=== PATIENT | female | born 1975 | race Hispanic/Latino ===

== ENCOUNTER 2025-03-30 15:00 | Inpatient (IN) | payer BC, MEDICAID ==
[2025-03-30 15:34] LABS: #Basophils 0.03 10x3/uL (0.0-0.2); #Eosinophils 0.21 10x3/uL (0.0-0.7); #Monocytes 0.79 10x3/uL (0.11-0.59); #Neutrophils 8.25 10x3/uL (1.40-6.50); %Basophils 0.3 % (0.0-1.0); %Eosinophils 1.9 % (0.0-10.0); %Lymphocytes 17.1 % (21.0-51.0); %Monocytes 7.0 % (0.0-10.0); %Neutrophils 73.4 % (42.0-75.0); Hematocrit 37.3 % (36.0-47.0); Hemoglobin 12.6 g/dL (12.0-16.0); Mean Corpuscular Hemoglobin 28.5 pg (27.0-31.0); Mean Corpuscular Volume 84.4 fL (78.0-98.0); Platelet Count 246 10x3/uL (130-400); Red Blood Cell (RBC) Count 4.42 mill/uL (4.20-5.40); White Blood Cell (WBC) Count 11.23 10x3/uL (4.8-10.8)
[2025-03-30] MEDS ORDERED: diphenhydrAMINE 50 MG/ML VIAL ONE (15:41)
[2025-03-30] MEDS ORDERED: Prochlorperazine 10 MG/2 ML VIAL ONE (15:41)
[2025-03-30] MEDS ORDERED: hydrALAZINE 20 MG/ML VIAL ONE (15:45)
[2025-03-30 16:03] LABS: ALT (SGPT) 15 U/L (Less than 34); AST (SGOT) 34 U/L (11-34); Albumin 2.4 g/dL (3.1-4.5); Alkaline Phosphatase 111 U/L (40-110); Anion Gap 7 mmol/L (10-20); BUN (Urea Nitrogen) 27 mg/dL (9.8-20.1); Bilirubin, Total 0.3 mg/dL (0.3-1.2); Calc. Creatinine Clearance 0 mL/min (70-130); Calcium 8.9 mg/dL (7.8-10.44); Carbon Dioxide 26 mmol/L (22-29); Chloride 104 mmol/L (98-107); Globulin 4.2 g/dL (2.4-3.5); Glucose 321 mg/dL (70-105); Potassium 4.3 mmol/L (3.5-5.1); Sodium 133 mmol/L (136-145)
[2025-03-30] MEDS ORDERED: niCARdipine 25 MG/10 ML SDV ONE (17:34)
[2025-03-30] MEDS ORDERED: Acetaminophen 325 MG TAB PO PRN (18:24)
[2025-03-30] MEDS ORDERED: Melatonin 3 MG TAB PO PRN (18:24)
[2025-03-30] MEDS ORDERED: Senokot S 8.6-50 MG TAB PO PRN (18:24)
[2025-03-30] MEDS ORDERED: Ondansetron PF 4 MG/2 ML Vial IVP PRN (18:24)
[2025-03-30] MEDS ORDERED: Glucagon 1 MG/ML KIT IM PRN (18:29)
[2025-03-30] MEDS ORDERED: Dextrose 50% Abboject 50 ML SYRINGE SLOW IVP PRN (18:29)
[2025-03-30] MEDS ORDERED: Electrolyte Replacement Protocol 1 EACH FS SCH (19:45)
[2025-03-30] MEDS ORDERED: Potassium Chloride 20 MEQ in Premix 1 BAG IVPB PRN (20:00)
[2025-03-30] MEDS ORDERED: Magnesium Sulfate In Water 4 GM in Premix 1 BAG IVPB PRN (20:00)
[2025-03-30] MEDS ORDERED: PHOS-NAK 1 PKT PACK PO PRN (20:00)
[2025-03-30] MEDS: Furosemide 40 MG (4 mL) VIAL SLOW IVP SCH (21:59)
[2025-03-30] MEDS: Famotidine 20 MG TAB PO SCH (22:00)
[2025-03-30] MEDS: Lisinopril 20 MG TAB PO SCH (22:00)
[2025-03-30] MEDS: Insulin Glargine 30 UNITS/0.3 ML VIAL SC SCH (22:00)
[2025-03-30 22:38] VITALS: BMI 36.6
[2025-03-31] MEDS: niCARdipine 25 MG in Sodium Chloride 0.9% 250 ML 250 ML IVPB SCH (00:05)
[2025-03-31 05:10] LABS: #Basophils 0.03 10x3/uL (0.0-0.2); #Eosinophils 0.15 10x3/uL (0.0-0.7); #Monocytes 0.56 10x3/uL (0.11-0.59); #Neutrophils 4.58 10x3/uL (1.40-6.50); %Basophils 0.4 % (0.0-1.0); %Eosinophils 2.1 % (0.0-10.0); %Lymphocytes 23.9 % (21.0-51.0); %Monocytes 8.0 % (0.0-10.0); %Neutrophils 65.3 % (42.0-75.0); Hematocrit 32.0 % (36.0-47.0); Hemoglobin 10.7 g/dL (12.0-16.0); Mean Corpuscular Hemoglobin 28.8 pg (27.0-31.0); Mean Corpuscular Volume 86.3 fL (78.0-98.0); Platelet Count 245 10x3/uL (130-400); Red Blood Cell (RBC) Count 3.71 mill/uL (4.20-5.40); White Blood Cell (WBC) Count 7.02 10x3/uL (4.8-10.8)
[2025-03-31 05:55] LABS: Anion Gap 11 mmol/L (10-20); BUN (Urea Nitrogen) 29 mg/dL (9.8-20.1); Calc. Creatinine Clearance 112 mL/min (70-130); Calcium 8.4 mg/dL (7.8-10.44); Carbon Dioxide 23 mmol/L (22-29); Cardiac Risk 6.3 (Less than 4.5); Chloride 108 mmol/L (98-107); Cholesterol 266 mg/dl (< 200 Desired); Glucose 242 mg/dL (70-105); HDL Cholesterol 42 mg/dL (>60 Neg Risk); LDL Cholesterol, Calculated 159 mg/dL; Potassium 4.0 mmol/L (3.5-5.1); Sodium 138 mmol/L (136-145); Triglycerides 327 mg/dL (Less than 150)
[2025-03-31] MEDS: niCARdipine 25 MG/10 ML SDV ONE (06:08)
[2025-03-31] MEDS: Enoxaparin 40 MG (0.4 mL) SYRINGE SC SCH (09:16)
[2025-03-31] MEDS: hydrALAZINE 20 MG/ML VIAL SLOW IVP PRN (10:32)
[2025-03-31 16:57] VITALS: TEMP 97.6
[2025-03-31] MEDS: hydrALAZINE 20 MG/ML VIAL SLOW IVP SCH (18:42)
[2025-03-31 19:33] VITALS: BP 158/74
== END 2025-03-31 19:45 | disposition home or self-care (01) | DRG 305 ==
LOC: ERS 15:00 → IMCU/EMU 18:27 → T4-A 03-31 11:32
PROVIDERS: ADMIT Family Medicine; ATTEND Student in an Organized Health Care Education/Training Program
DX: I16.1 Hypertensive emergency (principal); E87.1 Hypo-osmolality and hyponatremia; I16.0 Hypertensive urgency; I10 Essential (primary) hypertension; Z79.899 Other long term (current) drug therapy; Z98.891 History of uterine scar from previous surgery; Z98.890 Other specified postprocedural states; D32.9 Benign neoplasm of meninges, unspecified; Z91.148 Patient's other noncompliance with medication regimen for other reason; D72.829 Elevated white blood cell count, unspecified; Z79.4 Long term (current) use of insulin; M79.89 Other specified soft tissue disorders; E11.65 Type 2 diabetes mellitus with hyperglycemia
CPT/HCPCS: 36415; 36416; 70450; 71045; 80048; 80053; 80061; 83036; 83880; 84443; 84484; 85025; 93005; 93970; 96361; 96365; 96366; 96375; J0360; J0780; J1200; J1650; J1815; J1940; J7050